=== PATIENT | female | born 1950 | race Caucasian/White ===

== ENCOUNTER 2021-06-28 17:46 | Emergency (ER) | payer MEDICARE, BC ==
[2021-06-28] MEDS: Ibuprofen 600 MG Tab PO ONE (18:38)
[2021-06-28] MEDS: Ondansetron 4 MG Tab.DIS PO ONE (18:38)
== END 2021-06-28 19:02 | disposition home or self-care (01) ==
LOC: LL.ED 17:46 → SUPCPDRO 17:46 → LL.ED 19:02
DX: M25.572 Pain in left ankle and joints of left foot (principal); Z91.048 Other nonmedicinal substance allergy status; Z88.1 Allergy status to other antibiotic agents; Z88.8 Allergy status to other drugs, medicaments and biological substances
CPT/HCPCS: 73610-LT; 99283; A9270-GY

== ENCOUNTER 2023-07-06 22:55 | Emergency (ER) | payer MEDICARE, BC, OTHER ==
[2023-07-06 23:06] LABS: BASOPHILS ABSOLUTE AUTO 0.02 K/uL (0.00-0.20); BASOPHILS PERCENT AUTO 0.3 % (0.0-2.0); EOSINOPHILS PERCENT AUTO 1.6 % (0.0-5.0); HEMATOCRIT 38.3 % (34.0-46.0); LYMPHOCYTES ABSOLUTE AUTO 2.15 K/uL (0.50-3.50); LYMPHOCYTES PERCENT AUTO 35.1 % (10.0-50.0); MEAN CORPUSCULAR HEMOGLOBIN 31.8 pg (28.2-33.3); MEAN CORPUSCULAR HGB CONC 33.9 g/dL (31.7-36.0); MEAN CORPUSCULAR VOLUME 93.6 fL (84.0-98.0); MONOCYTES ABSOLUTE AUTO 0.69 K/uL (0.00-1.00); MONOCYTES PERCENT AUTO 11.3 % (2.0-14.0); NEUTROPHILS ABSOLUTE AUTO 3.17 K/uL (1.40-7.00); NEUTROPHILS PERCENT AUTO 51.7 % (45.0-80.0); PLATELET COUNT,PLT 256 K/uL (150-350); RED BLOOD CELL COUNT 4.09 M/uL (3.77-5.09); RED CELL DISTRIBUTION WIDTH 12.7 % (11.2-14.1); WHITE BLOOD CELL COUNT,WBC 6.1 K/uL (4.0-10.2)
[2023-07-06] MEDS: Aluminum Hydroxide/Magnesium Hydroxide/Simethicone Susp 30 ML Cup PO ONE (23:10)
[2023-07-06] MEDS: Lidocaine 2% Viscous Solution 15 ML UD PO ONE (23:10)
[2023-07-06] MEDS: Ondansetron 4 MG/2 ML SDV IVPUSH ONE (23:10)
[2023-07-06] MEDS: Sodium Chloride 0.9% 10 ML Syringe FLUSH PRN (23:14)
[2023-07-06] MEDS: Sodium Chloride 0.9% 1,000 ML IV ONE (23:17)
[2023-07-06 23:29] LABS: ALANINE AMINOTRANSFERASE,ALT 18 U/L (12-78); ALBUMIN 4.1 g/dL (3.4-5.0); ALKALINE PHOSPHATASE 93 IU/L (46-116); ASPARTATE AMNIOTRANSFERASE,AST 11 U/L (15-37); BILIRUBIN TOTAL 0.3 mg/dL (0.2-1.0); BLOOD UREA NITROGEN,BUN 20 mg/dL (7-18); CALCIUM 9.7 mg/dL (8.5-10.1); CARBON DIOXIDE,CO2 32.2 mmol/L (21.0-32.0); CHLORIDE,CL 102 mmol/L (98-107); CREATININE 1.38 mg/dL (0.51-1.17); GLUCOSE RANDOM 114 mg/dL (70-99); MAGNESIUM 2.1 mg/dL (1.8-2.4); POTASSIUM,K 3.7 mmol/L (3.5-5.1); PRO B-TYPE NATRIUR PEPT,BNPPRO 65 pg/mL (0-125); PROTEIN TOTAL,TP 7.6 g/dL (6.4-8.2); SODIUM,NA 142 mmol/L (136-145)
[2023-07-06 23:31] LABS: ANION GAP 11.5 meq/L (7-15); ESTIMATED GFR 41 mL/min (>=60)
[2023-07-07 00:06] LABS: CORONAVIRUS COVID-19 NAA NEGATIVE (NEGATIVE); INFLUENZA A NAA NEGATIVE (NEGATIVE); INFLUENZA B NAA NEGATIVE (NEGATIVE); RESPIRATORY SYNCYTIAL VIR NAA NEGATIVE (NEGATIVE)
[2023-07-07 00:41] LABS: APPEARANCE,URINE CLEAR; BILIRUBIN,URINE NEGATIVE (NEGATIVE); COLOR,URINE YELLOW; GLUCOSE,URINE NEGATIVE (NEGATIVE); KETONES,URINE NEGATIVE (NEGATIVE); LEUKOCYTE ESTERASE,URINE TRACE (NEGATIVE); NITRITE,URINE NEGATIVE (NEGATIVE); OCCULT BLOOD,URINE NEGATIVE (NEGATIVE); PROTEIN,URINE NEGATIVE (NEGATIVE); UROBILINOGEN,URINE 0.2 E.U./dL (0.2-1.0)
[2023-07-07 00:48] LABS: BACTERIA,URINE NOT SEEN /HPF (NONE TO FEW); EPITHELIAL CELLS,URINE RARE /LPF; MUCUS,URINE NOT SEEN /LPF (NEGATIVE); RBC,URINE NOT SEEN /HPF; WBC,URINE 0-5 /HPF
[2023-07-07] MEDS ORDERED: Take Home: Ondansetron 4 MG Tab.DIS, 5 Tab Pack ONE (03:28)
[2023-07-07] MEDS: Take Home: Ondansetron 4 MG Tab.DIS, 5 Tab Pack PO ONE (03:35)
== END 2023-07-07 03:44 | disposition home or self-care (01) ==
LOC: LL.ED 22:55 → MERGE 22:55 → LL.ED 07-07 03:44
DX: R07.89 Other chest pain (principal); K52.9 Noninfective gastroenteritis and colitis, unspecified; I10 Essential (primary) hypertension; E03.9 Hypothyroidism, unspecified; Z88.8 Allergy status to other drugs, medicaments and biological substances; Z91.048 Other nonmedicinal substance allergy status; Z79.899 Other long term (current) drug therapy
CPT/HCPCS: 0241U; 36415; 71045; 80053; 81001; 83605; 83735; 83880; 84484; 85025; 85379; 87086; 93005; 93010; 96361; 96374; 99284; 99285-25; A9270-GY; J2405; J3490; J7030; Q0162